=== PATIENT | female | born 1990 | race Caucasian/White ===

== ENCOUNTER 2021-02-27 01:51 | Emergency (ER) | payer OTHER ==
[~2021-02-27] VITALS: Ht 157.5 cm; Wt 65.3 kg
[2021-02-27] MEDS ORDERED: CLINDAMYCIN HC300 MG PO (03:28)
[2021-02-27] MEDS ORDERED: NAPROXEN375 MG PO (03:28)
== END 2021-02-27 03:32 | disposition home or self-care (01) ==
LOC: ER 01:51
DX: S51.811A Laceration without foreign body of right forearm, initial encounter (principal); W25.XXXA Contact with sharp glass, initial encounter; Y92.89 Other specified places as the place of occurrence of the external cause

== ENCOUNTER → 2021-05-27 | Outpatient (CLI) | payer OTHER ==
[~2021-05-27] MED LIST: CLINDAMYCIN HC300 MG PO; NAPROXEN375 MG PO
== END | disposition home or self-care (01) ==
LOC: PPH VACUNA 08:00
PROVIDERS: ATTEND Emergency Medicine Pediatric Emergency Medicine
DX: Z23 Encounter for immunization (principal)